=== PATIENT | female | born 1985 | race Two or more races ===

== ENCOUNTER 2019-05-05 14:54 | Emergency (ER) | payer SELFPAY ==
[~2019-05-05] VITALS: Ht 165.1 cm; Wt 60.3 kg
--- NOTE | 2019-05-05 15:17 | NUR ---
CAME IN FOR PSYCHEVAL, "I FEEL " NO PLAN, INCREASED ANXIETY, -SI/HI. PT IS VISIBLY UPSET, CRYING. STATED SHE USED RESTROOM PRIOR TO REGISTERING, SO UNABLE TO PROVIDE SAMPLE AT THIS TIME. MADE COMFORTABLE AND READY FOR EVAL.
[2019-05-05] MEDS ORDERED: LORAZEPAM 1 MG TABLET PO ONE (15:30)
[2019-05-05] MEDS ORDERED: LORAZEPAM 1 MG TABLET ONE (15:45)
[2019-05-05 15:47] LABS: BASOPHILS % (AUTO) 0.6 % (0.0-2.0); EOSINOPHILS % (AUTO) 2.5 % (0.0-6.0); HEMATOCRIT 43 % (33-45); HEMOGLOBIN 15.2 g/dL (11.5-14.8); LYMPHOCYTES # (AUTO) 2.3 /CMM (0.8-4.8); LYMPHOCYTES % (AUTO) 31.9 % (20.0-44.0); MEAN CORPUSCULAR HGB CONC 35 g/dl (31.0-36.0); MEAN CORPUSCULAR VOLUME 87 fL (82-100); MONOCYTES # (AUTO) 0.5 /CMM (0.1-1.30); MONOCYTES % (AUTO) 6.7 % (2.0-12.0); NEUTROPHILS # (AUTO) 4.2 /CMM (1.8-8.9); NEUTROPHILS % (AUTO) 58.3 % (43.0-81.0); PLATELET COUNT (AUTO) 272 /CMM (150-450); WHITE BLOOD COUNT (AUTO) 7.2 K/uL (4.3-11.0)
[2019-05-05 15:50] LABS: APPEARANCE,URINE TURBID (CLEAR); BILIRUBIN,URINE 1+ (NEGATIVE); BLOOD, URINE NEGATIVE Ery/uL (NEGATIVE); COLOR,URINE YELLOW (YELLOW); KETONES,URINE NEGATIVE (NEGATIVE); LEUKOCYTE ESTERASE ,URINE NEGATIVE (NEGATIVE); NITRITE, URINE NEGATIVE (NEGATIVE); PROTEIN,URINE NEGATIVE (NEGATIVE); UGLUCOSE NEGATIVE (NEGATIVE)
--- NOTE | 2019-05-05 16:03 | NUR ---
Patient does not wish to proceed with medical care recommended by Dr. TIPTON. Patient given information related to possible complications, up to and including , which could occur as a result of leaving the hospital at this time. Patient verbalizes understanding of risks involved due to leaving against medical advice. Patient has signed AMA form.
[2019-05-05 16:12] LABS: CARBON DIOXIDE 27 mmol/L (21-32); CHLORIDE 102 mmol/L (98-107); POTASSIUM 3.6 mmol/L (3.5-5.1); SODIUM SERUM 138 mmol/L (136-145)
[2019-05-05 16:13] LABS: CALCIUM, SERUM 8.6 mg/dL (8.5-10.1); GLUCOSE 112 mg/dL (74-106); UREA NITROGEN, BLOOD 9 mg/dL (7-18)
[2019-05-05 16:18] LABS: ALANINE AMINOTRANSFERASE 15 U/L (12-78); ALBUMIN 3.8 g/dL (3.4-5.0); ALCOHOL, BLOOD < 3 mg/dL (0-0); ALKALINE PHOSPHATASE 42 U/L (46-116); ASPARTATE AMINOTRANSFERASE 8 U/L (15-37); BILIRUBIN,DIRECT 0.1 mg/dL (0.0-0.2); BILIRUBIN,TOTAL 0.4 mg/dL (0.2-1.0); SALICYLATE 3.9 mg/dL (2.8-20.0); TOTAL PROTEIN, SERUM 7.1 g/dL (6.4-8.2)
[2019-05-05 16:22] LABS: ACETAMINOPHEN < 2 ug/ml (10-30)
[2019-05-05 16:40] LABS: RBC,URINE 0-2 /HPF (0-2); WBC,URINE 0-2 /HPF (0-3)
[2019-05-05 16:41] LABS: BACTERIA,URINE Few /HPF (None Seen); SQUAMOUS EPITHELIAL CELL,UR Few /HPF (None Seen); URINE AMORPHOUS URATE Many /HPF (None Seen)
[2019-05-05 20:40] VITALS: BP 117/77
== END 2019-05-05 20:41 | disposition home or self-care (01) ==
LOC: ER 15:01
DX: F41.9 Anxiety disorder, unspecified (principal); F32.9 Major depressive disorder, single episode, unspecified
CPT/HCPCS: 36415; 80048; 80076; 80307; 80329; 81001; 84703; 85025; 99284; G0480; 81000-TC